=== PATIENT | male | born 1975 | race Caucasian/White ===

== ENCOUNTER 2016-12-11 16:27 | Emergency (ER) | payer BC ==
[2016-12-11 16:36] VITALS: BP 153/110
[2016-12-11] MEDS ORDERED: Diphtheria,Pertussis(Acell),Tetanus Vaccine 0.5 ML SDV IM ONE (16:45)
[2016-12-11] MEDS ORDERED: Bacitracin Oint 1 GM U/D Packet TOP ONE (16:46)
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
== END 2016-12-11 17:00 | disposition home or self-care (01) ==
LOC: LL.ED 16:27
DX: T23.292A Burn of second degree of multiple sites of left wrist and hand, initial encounter (principal); F17.210 Nicotine dependence, cigarettes, uncomplicated; Z88.8 Allergy status to other drugs, medicaments and biological substances; Z23 Encounter for immunization; Z88.1 Allergy status to other antibiotic agents; X16.XXXA Contact with hot heating appliances, radiators and pipes, initial encounter
CPT/HCPCS: 16025; 90471; 90715; 99281; 99283

== ENCOUNTER 2024-02-22 08:12 | Emergency (ER) | payer BC ==
[2024-02-22] MEDS: Tetracaine HCl/PF 0.5% 4 ML Bottle EYELF ONE (08:18)
[2024-02-22 08:41] VITALS: BP 168/118; PULSE 67
== END 2024-02-22 08:59 | disposition home or self-care (01) ==
LOC: LL.ED 08:12
DX: H57.89 Other specified disorders of eye and adnexa (principal); I10 Essential (primary) hypertension; F17.210 Nicotine dependence, cigarettes, uncomplicated; Z88.8 Allergy status to other drugs, medicaments and biological substances
CPT/HCPCS: 99283; J3490